=== PATIENT | female | born 1965 | race Caucasian/White ===

== ENCOUNTER 2022-02-03 06:01 | Inpatient (IN) ==
--- NOTE | 2022-01-19 10:42 | Anesthesiology Consultation ---
Date of Service January 19, 2022 Assessment & Plan (1) Encounter for pre-operative examination: - optimization note sent to PCP regarding abnormal CXR. Chart Review Chart Review: Pending: Refer to Additional Notes / Consult section and Patient seen in Pre Admission Testing Teaching & Discussion Pre-Anesthesia Teaching/Discussion Notes: Instructed NPO after midnight before surgery, except medications with 15 cc of water. Medication instructions provided according to the PAT guidelines. History Surgery Operation Date: 02/03/22 10:35 Proposed Procedures p C5-C6 Anterior Cervical Discectomy and Fusion Spinal Cord Monitoring - Max Portillo, Height/Weight Height: 5 ft 9.5 in Weight: 97.2 kg Allergies Allergy/AdvReac Type Severity Reaction Status Date / Time hydrocodone [From Vicodin] Allergy Severe Itching, Verified 01/12/22 14:49 heart racing Penicillins Allergy Unknown Childhood Verified 01/12/22 14:49 reaction Medications Home Medications Medication Instructions Recorded Confirmed Last Taken No Known Home Medications 01/12/22 01/12/22 Unknown Past Medical History Medical History Cervical spinal stenosis History of COVID-19 02/2020, symptoms resolved History of kidney stones Obesity Patient denies h/o stroke, seizures, heart attack, heart failure, DM, HTN, blood clots or blood transfusions. Exercise / Class Metabolic Activity II 4-5 Yardwork/Stairs/Walk up hill (denies CP or SOB with 1 FOS) Past Family History Family History Other No family history of adverse response to anesthesia Past Surgical History Surgical History H/O shoulder surgery Left (bone spurs) History of section x2 History of cystoscopy x2 (stone extraction) Hx of LASIK [place] teeth removed Past Anesthesia History No Hx of Anesthesia Complications and No Family Hx of Anesthesia Complications History of PONV No Hx of PONV and No Hx of Motion Sickness Social History Smoking Status: Never smoker Do You Dip or Chew Tobacco: No Hx Alcohol Use: Yes Alcohol type: beer alcohol intake frequency: holidays/special occasions only substance use type: does not use Review of Systems Occasional snoring, denies witnessed apneas. Patient denies chest pain, shortness of breath, dyspnea on exertion, reflux, fever, chills, cough, wheezing, or palpitations. Physical Exam Vital Signs Vitals BP 119/56 P 88 TEMP 98.0 SP02 100% on RA RESP 18 Physical Limited cervical extension range of motion without pain TMD 3.5 finger breadths Mallampati Score 2 Dentition: intact, denies chipped or loose teeth, caps/crowns, implants or bridges Lungs: normal respiratory effort. Clear throughout to auscultation, no adventitious breath sounds Cardiac: regular rate and rhythm, no murmurs noted Carotid arteries: negative bruit bilat Lab Results Anesthesia Preop Results Results Anesthesia Widget: WBC 8.79 K/ul (4.8-10.8) 01/19/22 Hgb 13.4 g/dl (12.0-16.0) 01/19/22 Hct 42.0 % (34.1-44.9) 01/19/22 Plt 334 K/uL (130-400) 01/19/22 Na 142 mmol/L (136-145) 01/19/22 K 3.7 mmol/L (3.5-5.1) 01/19/22 Cl 107 mmol/L (98-107) 01/19/22 CO2 27 mmol/L (21-32) 01/19/22 BUN 11 mg/dl (6-23) 01/19/22 Creat 0.81 mg/dl (0.6-1.2) 01/19/22 Glucose Level 83 mg/dl (70-99(Fasting)) 01/19/22 PT 10.3 Seconds (9.0-12.0) 01/19/22 PTT 27.4 Seconds (21.0-31.0) 01/19/22 INR 1.0 (0.9-1.1) 01/19/22 Urine Color Yellow 01/19/22 Urine Appearance Clear (Clear) 01/19/22 Urine pH 6.0 (4.5-7.5) 01/19/22 Urine Specific [place] 1.009 (1.000-1.030) 01/19/22 Urine Protein Negative (Negative) 01/19/22 Urine Glucose (UA) Negative (Negative) 01/19/22 Urine Ketones Negative (Negative) 01/19/22 Urine Blood Negative (Negative) 01/19/22 Urine Nitrite Negative (Negative) 01/19/22 Urine Bilirubin Negative (Negative) 01/19/22 Urine Urobilinogen Negative (Negative) 01/19/22 Urine Leukocyte Esterase Negative (Negative) 01/19/22 Blood Type A Positive 01/19/22 Antibody Screen NEGATIVE 01/19/22 Testing Electrocardiogram Date: 01/19/22 NSR, rate 77 bpm Chest X-Ray Date: 01/19/22 Small asymmetric lobular density within the right lower lobe. This is not confirmed on the lateral view and therefore favors a cluster of vessels. Otherwise, lungs are clear. The heart is normal in size. No pleural effusions. No pneumothorax. IMPRESSION: Small asymmetric lobular density within the right lower lobe. This is not confirmed on the lateral view and therefore favors a cluster of vessels. However, follow-up noncontrast chest CT recommended for confirmation given the lack of prior studies for comparison. This report was called/faxed to the referring physician following dictation. COVID-19 Risk Screen Screening Information COVID-19 Screen Date: 01/19/22 Exposure 21 Days Family/Household +COVID Last 21 Days: No Exposure 10 Days Any COVID Exposure Last 10 Days: No Symptoms Last 10 Days Experienced COVID Sx Last 10 Days: No + COVID 0-90 Days COVID + in Last 0-90 Days: No
[~2022-02-03 06:01] MED LIST: ACETAMINOPHEN 500 MG TAB PO SCH; CLINDAMYCIN/D5W 600 MG/50 ML BAG **Premixed Bag IV SCH; CeleBREX 200 MG CAP PO SCH; GABAPENTIN 600 MG DOSE PO SCH; LR 15ML/HR IV SCH
[2022-02-03] MEDS ORDERED: LIDOCAINE 2% MPF LOCAL 5 ML VIAL INFIL ONE (07:05)
[2022-02-03] MEDS ORDERED: PROPOFOL IV EMULSION 10 MG/ML 20 ML VIAL IV ONE (07:05)
[2022-02-03] MEDS ORDERED: DEXAMETHASONE SOD INJ 4 MG/ML VIAL ONE ×2 (07:05→07:06)
[2022-02-03] MEDS ORDERED: MIDAZOLAM HCL 1 MG/ML 2ML VIAL ONE (07:06)
[2022-02-03] MEDS ORDERED: KETAMINE 50 MG/5 ML SYRINGE ONE (07:06)
[2022-02-03] MEDS ORDERED: fentaNYL citrate 100 MCG/2 ML VIAL ONE ×2 (07:06→08:16)
[2022-02-03] MEDS ORDERED: ceFAZolin 330 MG/ML 1 GM VIAL ONE (07:21)
[2022-02-03] MEDS ORDERED: SUGAMMADEX SODIUM 200 MG/2 ML VIAL IV ONE (07:28)
[2022-02-03] MEDS ORDERED: DexMEDEtomidine HCL IV 100 MCG/ML VIAL IV ONE (07:28)
--- NOTE | 2022-02-03 07:29 | History & Physical Report ---
Date of Service February 03, 2022 Assessment & Plan (1) Herniation of cervical intervertebral disc with radiculopathy: Plan: C5-C6 anterior cervical discectomy and fusion History of Present Illness Chief Complaint: Neck and right arm pain Primary Care Provider: Cinthia Wall PA-C This is a 56-year-old female who presents with chronic persistent neck and right arm pain after failing such course of nonoperative care she is here for surgical invention. Allergies Allergy/AdvReac Type Severity Reaction Status Date / Time hydrocodone [From Vicodin] Allergy Severe Itching, Verified 02/03/22 06:42 heart racing Penicillins Allergy Unknown Childhood Verified 02/03/22 06:42 reaction Home Medications Medication Instructions Recorded Confirmed Type No Known Home Medications 01/12/22 02/03/22 History Past Med/Surg History Medical History Cervical spinal stenosis History of COVID-19 02/2020, symptoms resolved History of kidney stones Obesity Surgical History H/O shoulder surgery Left (bone spurs) History of section x2 History of cystoscopy x2 (stone extraction) Hx of LASIK [place] teeth removed Family History Other No family history of adverse response to anesthesia Social History Smoking Status: Never smoker Second Hand Exposure: Yes ( A CHILD); Do You Dip or Chew Tobacco: No; Hx Alcohol Use: Yes Alcohol type: beer Preferred Language: Icelandic Inside Sales Engineer Required: No Beliefs That Will Affect Care: Quaker Quaker Beliefs: SABIANIST Current Living Situation: Family Feels Safe at Home: Yes Safety Concerns: Feels Safe At This Time Assistive Devices: None Physical Exam Physical Exam: Patient is alert and oriented Heart regular rhythm Lungs clear Results & Data Results & Data ([facility]) Vital Signs (Past 12 Hours) Vital Signs Temp Pulse Resp BP Pulse Ox O2 Del Method 02/03/22 06:43 36.9 C 82 20 139/81 100 Room Air
--- NOTE | 2022-02-03 07:29 | History & Physical Bridge Note ---
Date of Service February 03, 2022 History & Physical Bridge Note I have examined the patient, reviewed the History & Physical and in the interval since the performance of the History & Physical I have noted the following changes of clinical significance: no changes noted
[2022-02-03] MEDS ORDERED: ONDANSETRON INJ 2 MG/ML 2 ML VIAL ONE (08:16)
[2022-02-03] MEDS ORDERED: FLOSEAL HEMOSTATIC MATRIX 10ML TOP ONE (08:49)
[2022-02-03] MEDS ORDERED: ROCURONIUM BROMIDE 10 MG/ML 5 ML VIAL IV ONE (08:50)
[2022-02-03] MEDS ORDERED: ATROPINE SULFATE 0.1 MG/ML 10ML SYR IV PRN (08:51)
[2022-02-03] MEDS ORDERED: ONDANSETRON INJ 2 MG/ML 2 ML VIAL IV PRN ×2 (08:51→10:46)
[2022-02-03] MEDS ORDERED: ePHEDrine sulfate 50 MG/ML AMP IV PRN (08:51)
--- NOTE | 2022-02-03 08:58 | Operative Report ---
Post Operative Report Pre & Post Diagnosis Operation Date: 02/03/22 07:45 Pre-Op Diagnosis: Herniation of Cervical Intervertebral Disc with Radiculopathy Post-Op Diagnosis: Herniation of Cervical Intervertebral Disc with Radiculopathy I identified the patient and participated in the time-out.: Yes Procedure Operation Date: 02/03/22 07:45 Actual Procedures #1 anterior cervical discectomy with bilateral foraminotomies C5-C6. #2 anterior cervical arthrodesis C5-C6. #3 placement of globus coalition cage 8 mm in height filled with I factor C5-C6. Surgeon Max Portillo, Lockmaker Lior Diaz Estimated Blood Loss 5 Findings Consistent with Post-Op Diagnosis Specimens None Indications This is a 56-year-old female who presents above-mentioned diagnosis after failing course of nonoperative care she is here for surgical invention. Description of Procedure Patient was met with identified informed consent obtained. Patient was then taken to the operative suite underwent patient placed in supine position Low with head Huertas well puller head. All bony prominences well-padded eyes inspected to ensure no external pressure placed upon the. This point the anterior cervical spine was prepped and draped no sterile fashion. The assistance of fluoroscopy defy the C5-C6 disc base and a transverse incision was placed along the right anterior aspect of the cervical spine overlying his region. Blunt dissection with assistance of bipolar electrocautery was performed down to expose the anterior cervical spine at C5-C6. Self-retaining retractors placed. Then performed a complete discectomy of C5-C6 out to the uncovertebral joints bilaterally. [place] distracting pins utilized to assist in visualization. I then removed all posterior annular fibers longitudinal ligament bilateral foraminotomies performed. Then placed an 8 mm globus coalition cage filled I factor in the place. 16mm screws were then used to lock it into position. The incision was then copiously irrigated explored to ensure no damage to surrounding structures or remaining bleeding. 10 round CATIA drain inserted. It was then closed with 2 Vicryl in the fascia and 4 Monocryl for final skin closure. Steri-Strip sterile dressings placed. Patient waken taken to PACU stable condition. Please note spinal cord monitoring was utilized at the procedure no changes noted. Lastly Lior Diaz was present at the entire procedure and while the patient positioning complex portions of the surgery and final skin closure. I attest to the content of the Intraoperative Record and any orders documented therein. Any exceptions are noted below.
[2022-02-03] MEDS: fentaNYL citrate 100 MCG/2 ML VIAL IV PRN ×4 (09:33→09:48)
[2022-02-03] MEDS ORDERED: METOCLOPRAMIDE HCL INJ 5 MG/ML 2 ML VIAL IV PRN (10:46)
[2022-02-03] MEDS ORDERED: RACEPINEPHRINE 2.25% NEBU SOLN 0.5 ML VIAL INH PRN (10:46)
[2022-02-03] MEDS ORDERED: FAMOTIDINE 20 MG TAB PO PRN (10:46)
[2022-02-03] MEDS ORDERED: MAGNESIUM HYDROXIDE SUSP 30 ML UDC PO PRN (10:46)
[2022-02-03] MEDS ORDERED: ACETAMINOPHEN 500 MG TAB PO PRN (10:46)
[2022-02-03] MEDS ORDERED: NALOXONE HCL 0.4 MG/1 ML VIAL/CARP IV PRN (10:46)
[2022-02-03] MEDS ORDERED: PROMETHAZINE HCL 12.5 MG in SODIUM CHLORIDE 0.9% 50 ML IV PRN (10:46)
[2022-02-03] MEDS ORDERED: dexAMETHasone 8 MG in SYRINGE 0 ML IV PRN (10:46)
[2022-02-03] MEDS ORDERED: diphenhydrAMINE Capsule 25 MG CAP PO PRN (10:46)
[2022-02-03] MEDS ORDERED: hydrOXYzine HCl 25 MG TAB PO PRN (10:46)
[2022-02-03] MEDS ORDERED: ALUMINUM/MAGNESIUM SUSP 30 ML UDC PO PRN (10:46)
[2022-02-03] MEDS ORDERED: HYDROmorphone INJ 0.5 MG/0.5 ML SYR IV PRN (10:46)
[2022-02-03] MEDS ORDERED: ONDANSETRON 4 MG OD TAB PO PRN (10:46)
[2022-02-03] MEDS ORDERED: LORazepam 0.5 MG TAB PO PRN (10:46)
[2022-02-03] MEDS ORDERED: traMADol HCL 50 MG TABLET PO PRN (10:46)
[2022-02-03] MEDS ORDERED: ACETAMINOPHEN 1,000 MG/100 ML VIAL IV PRN (10:46)
[2022-02-03] MEDS ORDERED: bisacodyL 10 MG SUPP PR PRN (10:46)
[2022-02-03] MEDS ORDERED: SOD PHOSPHATE/SOD BIPHOSPHATE ENEMA 132 ML BTL PR PRN (10:46)
[2022-02-03] MEDS ORDERED: HYDROmorphone INJ 1 MG/ML SYRINGE IV PRN (10:46)
[2022-02-03] MEDS ORDERED: LORazepam 0.5 MG in SYRINGE 0 ML IV PRN (10:46)
[2022-02-03] MEDS: LACTATED RINGER'S 1,000 ML IV SCH ×2 (11:07→23:04)
[2022-02-03] MEDS: dexAMETHasone 6 MG in SYRINGE 0 ML IV SCH (11:08)
[2022-02-03] MEDS: oxyCODONE HCL IR 5 MG TAB (IMMEDIATE RELEASE) PO PRN (11:16)
--- NOTE | 2022-02-03 12:09 | Anesthesiology Progress Note ---
Date of Service February 03, 2022 Anesthesia Post Procedure Vital Signs Vital Signs: Temp Pulse Pulse Resp BP BP Pulse Ox 02/03/22 11:40 36.6 C 67 16 108/70 100 02/03/22 11:26 02/03/22 11:10 35.9 C L 64 16 105/70 100 02/03/22 10:40 36.4 C L 64 16 106/69 100 02/03/22 10:10 63 12 102/64 99 02/03/22 09:55 70 13 108/70 100 02/03/22 09:45 72 13 104/60 99 02/03/22 09:35 68 14 109/65 96 02/03/22 09:25 88 18 122/68 99 02/03/22 09:17 36.0 C L 91 H 16 114/70 98 02/03/22 06:43 36.9 C 82 20 139/81 100 Pulse Ox O2 Del Method O2 Del Method O2 Flow Rate O2 Flow Rate 02/03/22 11:40 Nasal Cannula 2 02/03/22 11:26 100 Nasal Cannula 2 02/03/22 11:10 Nasal Cannula 2 02/03/22 10:40 Nasal Cannula 2 02/03/22 10:10 Nasal Cannula 2 02/03/22 09:55 Nasal Cannula 2 02/03/22 09:45 Nasal Cannula 2 02/03/22 09:35 Oxymask 10 02/03/22 09:25 Oxymask 10 02/03/22 09:17 Oxymask 10 02/03/22 06:43 Room Air Pain Intensity Right Upper Arm: Pain Intensity: 4 Posterior Neck: Pain Intensity: 3 Notes Mental Status: alert / awake / arousable and participated in evaluation Patient Amnestic to Procedure: Yes Nausea / Vomiting: adequately controlled Pain: adequately controlled Airway Patency, RR, SpO2: stable & adequate BP & HR: stable & adequate Hydration State: stable & adequate Anesthetic Complications: no major complications apparent
[2022-02-03] MEDS: CLINDAMYCIN/D5W 600 MG/50 ML BAG IV SCH ×2 (14:27→22:42)
--- NOTE | 2022-02-03 14:36 | Fluoroscopy Report ---
[place] cervical 2-3V HISTORY: 56 years-old Female ACDF C5-6 COMPARISON: None TECHNIQUE: 2 spot fluoroscopic images of the cervical spine were obtained utilizing 13.8 seconds fluo roscopy FINDINGS: Anterior fusion with discectomy at C5-C6. Alignment appears satisfactory. The hardware appears intact . No acute fracture identified. Radiopaque surgical sponges in the anterior soft tissues. Endotrachea l tube. IMPRESSION: Fluoroscopic assistance as above. ACT 112: Negative or not required by law. The above report was generated using voice recognition software. It may contain grammatical, syntax o r spelling errors. Electronically signed by: Siddharth Russo M.D. 02/03/2022 2:35 PM
[2022-02-03] MEDS ORDERED: DOCUSATE SODIUM/SENNA 50/8.6MG TAB PO SCH (21:00)
[2022-02-04] MEDS: POLYETHYLENE (MIRALAX) 17 GM PACK PO SCH ×2 (05:10→12:34)
[2022-02-04] MEDS: oxyCODONE HCL IR 5 MG TAB (IMMEDIATE RELEASE) PO PRN (07:33)
[2022-02-04] MEDS: dexAMETHasone 6 MG in SYRINGE 0 ML IV SCH (08:13)
[2022-02-04] MEDS ORDERED: FLUARIX QUADRIVALENT 0.5 ML SYR IM ONE (09:00)
--- NOTE | 2022-02-04 10:01 | Discharge Summary ---
Date of Service February 04, 2022 Admission HPI Per Admitting Provider This is a 56-year-old female who presents with chronic persistent neck and right arm pain after failing such course of nonoperative care she is here for surgical invention. Principal Diagnosis Cervical disc herniation with radiculopathy Discharge Data Allergies Allergy/AdvReac Type Severity Reaction Status Date / Time hydrocodone [From Vicodin] Allergy Severe Itching, Verified 02/03/22 06:42 heart racing Penicillins Allergy Unknown Childhood Verified 02/03/22 06:42 reaction Procedures Performed Operation Date: 02/03/22 07:45 Actual Procedures p C5-C6 Anterior Cervical Discectomy and Fusion, Spinal Cord Monitoring(Not Applicable) - Max Portillo DO Ordered Studies 02/03/22 07:45 [place] cervical 2-3V Routine Hospital Course (1) Herniation of cervical intervertebral disc with radiculopathy: Patient underwent anterior cervical discectomy and fusion tolerated this well was taken to orthopedic for postoperative. Postop day 1 she was swallowing well no hoarseness. Pain well controlled. CATIA drain decreased appropriately. Excellent strength testing. Separately discharged home. Discharge orders instructions from the chart for further review. Total Time Total Time Spent Total Time Spent (In Minutes): 20 minutes Discharge Plan Discharge Items Patient Disposition: Home - Self-Care Reason For Visit: post op Discharge Diagnosis: Lumbar disc herniation with radiculopathy Activity: As commented below Non-emergency contact: Primary Care Provider Call non-emergency contact if: you have any medication questions Follow-up/Referrals: Cinthia Wall PA-C [Primary Care Provider] - Diet: Regular Addtl Attending Provider Instructions: ACTIVITY RECOMMENDATIONS: SELF CARE INSTRUCTIONS AFTER CERVICAL FUSIONS 1. No smoking. Smoking drastically decreases the chance of a solid fusion. 2. No bending, lifting more than 5 pounds, or twisting (roll like a log when turning in bed). 3. You may shower 3 days after surgery. Thoroughly dry wound. Do not soak in the tub. 4. Cervical collar: Must be worn at all times including sleeping. You may remove the brace only to bath, eat and if you are sitting in a recliner. 5. Please walk as much as you can for exercise. Gradually increase the distance that you walk as your endurance increases. SPECIAL CARE INSTRUCTIONS: VERY IMPORTANT TO READ AND REVIEW A. Do not take any anti-inflammatory medications (i.e. Indocin, Advil, Aspirin, Naprosyn, Aleve, Motrin, etc.) as these may inhibit the chance of a solid fusion. Tylenol is okay to take. B. Your surgical incision has been closed with a cosmetic suture under the skin that will dissolve in about 6 weeks. In 14 days, you can use a pair of clean scissors and cut the suture that is left outside of the skin at the ends of your incision. C. Complications are uncommon, but please contact us if you have any signs or symptoms of: 1. wound infection (fever higher than 102.5 degrees F, redness, separation of wound, drainage, or increasing pain from the incision) 2. blood clots in legs (pain, swelling, redness and warmth in legs) 3. urinary tract infection (fever higher than 102.5 degrees, burning upon urination or increased frequency of urination) 4. nerve problems (inability to walk on your toes or heels, numbness, loss of bowel or bladder control) 5. any other symptoms that concern you. D. Please call the office at if you have any concerns or questions about your operation or recovery. MANAGING PAIN AFTER SPINAL SURGERY 1. Narcotic medication is intended for short-term use and will be provided for surgical pain. Surgical pain usually lasts for a period of 4-6 weeks. N arcotic medication includes Percocet, Vicodin, Darvocet, Tylenol #3 or Lortab. 2. Longer-term pain is more appropriately treated with non-narcotic medication such as Tylenol ES. 3. Muscle spasm is not appropriately treated with narcotics. Muscle relaxers such as Soma, Flexeril or Skelaxin can be used along with Tylenol ES. 4. Remember that we all live with some "aches and pains". This is not unusual or uncommon after an injury or as we get older. 5. We will provide appropriate medication within the normal guidelines of their prescribed use. We will also be very cautious and aware of potential abuse and extended duration of patients' medication needs. 6. Please allow 2-3 days to process refills. Prescriptions will not be mailed but must be picked up at the office. FOLLOW UP VISIT: Keep your scheduled follow-up appointment. Any questions, please call the office at . Pending Studies at Discharge: No Stand-Alone Forms: My [facility], Smoking Cessation Medications and DC Order Prescriptions: New tramadol 50 mg tablet 50 mg PO Q6H PRN (Reason: pain, moderate) Qty: 20 0RF oxycodone 5 mg tablet 5 mg PO Q6H PRN (Reason: pain, severe) Qty: 20 0RF Discharge Orders: Discharge Order (Routine); Ordered 02/04/22 Ordered By: Max Portillo Admission Data Admit Date/Time: 02/03/22 09:01 Attending Provider: Max Portillo Admit Provider: Max Portillo Primary Care Provider: Cinthia Wall
== END 2022-02-04 13:18 | disposition home or self-care (01) | DRG 30 ==
LOC: ASU 06:01 → 3E 09:01